=== PATIENT | male | born 1960 | race Caucasian/White ===

== ENCOUNTER 2019-11-21 00:52 | Outpatient (CLI) | payer OTHER, SELFPAY ==
[2019-11-21 18:42] LABS: SARS-CoV-2 RNA PCR Negative
== END 2019-11-21 00:53 | disposition home or self-care (01) ==
LOC: ANHCOVIDDT 00:52
PROVIDERS: PCP Internal Medicine; Visit Provider Internal Medicine Gastroenterology
DX: Z01.812 Encounter for preprocedural laboratory examination (principal); Z20.828 Contact with and (suspected) exposure to other viral communicable diseases
CPT/HCPCS: 87635; C9803; U0003

== ENCOUNTER 2019-11-23 01:52 | Day surgery (SDC) | payer SELFPAY ==
[2019-11-15 14:27] VITALS: BMI 28.1
[2019-11-23 07:43] VITALS: BP 126/65; PULSE 68; RESP 18; TEMP 36.6; O2SAT 97
[2019-11-23] MEDS: LACTATED RINGERS 1,000 ML 150 ML IV CONT (07:56)
--- NOTE | 2019-11-23 08:05 | P.CONGI_ITS ---
Assessment and Plan Assessment and plan (1) Encounter for screening colonoscopy: Code(s): Z12.11 - Encounter for screening for malignant neoplasm of colon Status: Acute Assessment and Plan: Is been more than 10 years since last colonoscopy. Screening colonoscopy is in order. Plan is to proceed with colonoscopy today. (2) Encounter for diagnostic colonoscopy due to change in bowel habits: Code(s): R19.4 - Change in bowel habit Status: Acute Assessment and Plan: Patient has had change in the color in nature of his stools over last 3 months. Plan is to evaluate with colonoscopy. High-fiber diet, fiber supplements are encourage. GI Consult Note Consult date/time: 11/23/19 08:05 HPI: Jesus Ac is a 59 year old male seen in [facility] at the request of Dr Orlando. Patient seen because of change in bowel habits. Patient reports change in the color of the stools. His stools are not loose. He notices this over the last several months. He denies any bleeding or weight loss. He denies any pain. His last colonoscopy was more than 10 years ago. His family history is noncontributory. Review of Systems Review of Systems: All systems reviewed & are unremarkable except as noted in HPI and below Meds Home Medications and Allergies Home Medications Medication Instructions Recorded Confirmed Type No Home Medications 11/15/19 11/23/19 History Allergies Allergy/AdvReac Type Severity Reaction Status Date / Time No Known Allergies Allergy Verified 11/23/19 07:41 Vital Signs Vital Signs - 24 hr 11/23/19 07:43 Temperature 97.9 F Pulse Rate 68 Respiratory Rate 18 Blood Pressure 126/65 Pulse Oximetry 97 Exam Narrative: Exam Narrative: Physical exam reveals patient to be alert. Vital signs stable. HEENT exam unremarkable. Lungs are clear to auscultation and percussion. Heart is without murmur or extra sounds. Abdominal exam bowel sounds are present soft nontender with no organomegaly. Digital external rectal exam normal.
--- NOTE | 2019-11-23 08:13 | WPDANESEPPF ---
Anes - Initial Pre Proc Eval Procedure: Operation Date: 11/23/19 08:30 Proposed Procedures p Colonoscopy - Aly Navarro MD Date/Time: 11/23/19 08:13 Surgeon: Aly Navarro MD Pre Op Diagnosis: Change in Bowel Habits Patient Data Age: 59 Gender: M Height: 6 ft 4 in Weight: 104.6 kg Last Vital Signs Temp 97.9 F 11/23/19 07:43 Pulse 68 11/23/19 07:43 Resp 18 11/23/19 07:43 BP 126/65 11/23/19 07:43 Pulse Ox 97 11/23/19 07:43 Allergies Allergy/AdvReac Type Severity Reaction Status Date / Time No Known Allergies Allergy Verified 11/23/19 07:41 Home Medications Medication Instructions Recorded Confirmed Type No Home Medications 11/15/19 11/23/19 History Patient hx anesthesia problems: none Family hx anesthesia problems: none PMFSH Past Medical History Medical History (Updated 11/23/19 @ 08:13 by Yamil Marc MD) Healthy adult Anes - Eval Final PreProcedure Day of Procedure 11/23/19 08:13 Patient weight: normal and overweight Heart: regular rate and rhythm Lungs: clear to auscultation Airway: Mallampati scale class II Last oral intake: >/= 8 hours ASA classification: II Emergent: no Anesthetic plan: proceed Anesthesia type and monitoring: general GIVS and standard monitoring Informed Consent: The patient's anesthetic plan and its attendant risks and benefits were discussed with the patient/family/POA. Questions were solicited and answers provided to the satisfaction of the patient/family/POA.
[2019-11-23 08:39] VITALS: BP 105/68; PULSE 65; RESP 17; O2SAT 99
[2019-11-23 08:49] VITALS: BP 110/71; PULSE 63; RESP 21; O2SAT 99
[2019-11-23 08:59] VITALS: BP 128/84; PULSE 63; RESP 21; O2SAT 99
== END 2019-11-23 09:09 | disposition home or self-care (01) ==
PROVIDERS: PCP Internal Medicine; Visit Provider Internal Medicine Gastroenterology
PROC: 0DJD8ZZ Inspection of Lower Intestinal Tract, Via Natural or Artificial Opening Endoscopic (ICD-10-PCS; CPT 45378; principal; 2019-11-23 08:30)
DX: R19.4 Change in bowel habit (principal); K64.8 Other hemorrhoids; E66.3 Overweight; Z68.28 Body mass index [BMI] 28.0-28.9, adult
CPT/HCPCS: 45378; J2704; J7120

== ENCOUNTER 2019-12-05 11:40 | Outpatient (NON) | payer OTHER, SELFPAY ==
[2019-12-06 14:54] LABS: SARS-CoV-2 RNA PCR Positive
== END 2019-12-05 11:41 ==
PROVIDERS: Visit Provider Internal Medicine
DX: U07.1 COVID-19 (principal); R09.89 Other specified symptoms and signs involving the circulatory and respiratory systems
CPT/HCPCS: 87635; C9803; U0003